=== PATIENT | male | born 1955 | race Hispanic/Latino ===

== ENCOUNTER → 2019-09-07 | Outpatient (CLI) | payer OTHER | END | disposition home or self-care (01) | LOC: EDUNIT# 09-06 15:30 → RAH 11:39 | PROVIDERS: ATTEND Internal Medicine Cardiovascular Disease | DX: Z13.6 Encounter for screening for cardiovascular disorders (principal) | CPT/HCPCS: 75571 ==

== ENCOUNTER → 2020-02-23 | Outpatient (CLI) | payer BC | END | disposition home or self-care (01) | LOC: RAH 08:36 | PROVIDERS: ATTEND Internal Medicine Cardiovascular Disease | DX: I70.201 Unspecified atherosclerosis of native arteries of extremities, right leg (principal); E11.621 Type 2 diabetes mellitus with foot ulcer | CPT/HCPCS: 93925 ==

== ENCOUNTER 2020-03-21 06:47 | Day surgery (SDC) | payer BC ==
[2020-03-19 13:51] LABS: BASOPHILS % (AUTO) 0.5 % (0.0-5.0); HEMATOCRIT 43.7 % (42-54); LYMPHOCYTES % (AUTO) 18.3 % (21.0-51.0); MEAN CORPUSCULAR HEMOGLOBIN 30.7 pg (27.0-33.0); MEAN CORPUSCULAR HGB CONC 33.2 g/dL (32.0-36.0); MEAN CORPUSCULAR VOLUME 92.6 fL (79-99); MONOCYTES % (AUTO) 8.1 % (3.0-13.0); NEUTROPHILS % (AUTO) 70.7 % (40.0-77.0); PLATELET COUNT (AUTO) 179 K/uL (130-400); RED BLOOD CELL COUNT(AUTO) 4.72 MIL/uL (4.50-6.20); RED CELL DISTRIBUTION WIDTH 12.6 % (11.0-15.5); WHITE BLOOD COUNT (AUTO) 8.1 K/uL (4.8-10.8)
[2020-03-19 14:00] LABS: CREATININE 1.1 mg/dL (0.5-1.5); POTASSIUM 4.4 mmol/L (3.5-5.1)
[2020-03-19 14:01] LABS: APPEARANCE,URINE Clear (CLEAR); BILIRUBIN,URINE Negative (NEGATIVE); COLOR,URINE Yellow (YELLOW); GLUCOSE, URINE (UA) >=1000 mg/dL (NEGATIVE); KETONES,URINE Trace mg/dL (NEGATIVE); LEUKOCYTE ESTERASE ,URINE Negative (NEGATIVE); NITRATE,URINE Negative (NEGATIVE); OCCULT BLOOD,URINE Negative (NEGATIVE); PROTEIN,URINE POS 1+ mg/dL (NEGATIVE); UROBILINOGEN,URINE 0.2 mg/dL (0.2-1.0)
[2020-03-19 14:04] LABS: INR 0.97 (0.85-1.15); PROTHROMBIN TIME 10.4 SEC (9.6-11.6)
[2020-03-19 14:05] LABS: PARTIAL THROMBOPLASTIN TIME 24.6 SEC (26.3-35.5)
[2020-03-19 15:00] LABS: BACTERIA,URINE Rare /HPF (None Seen); RBC,URINE 0-1 /HPF (0-1); SQUAMOUS EPITHELIAL CELL,UR Rare /HPF (0-2); WBC,URINE 0-1 /HPF (0-1)
[2020-03-20 09:06] VITALS: BP 154/89
[2020-03-21] VITALS (10 sets, daily range): BP systolic 134–157; BP diastolic 82–90
[~2020-03-21] VITALS: Ht 167.6 cm; Wt 74.7 kg
[~2020-03-21 06:47] MED LIST: 0.9% NACL 500ML IV.SOLN 500 ML IV SCH; ACET1TAB25 PO; CLOP75TA32 PO; LOSA25TA41 PO; METF-446 PO
[2020-03-21] MEDS ORDERED: FENTANYL CITRATE PF 50 MCG/1 ML 2ML VIAL ONE ×2 (07:43→11:15)
[2020-03-21] MEDS ORDERED: LIDOCAINE HCL 400MG/20ML VIAL ONE (07:43)
[2020-03-21] MEDS ORDERED: NITROGLYCERIN 2 MG VIAL IV ONE (07:43)
[2020-03-21] MEDS ORDERED: IODIXANOL 320 MG/ML 100 ML VIAL ONE ×2 (07:43→07:59)
[2020-03-21] MEDS ORDERED: NICARDIPINE 25MG INJ IV ONE (07:43)
[2020-03-21] MEDS ORDERED: MIDAZOLAM HCL 1 MG/ML 2ML VIAL ONE ×2 (07:43→10:03)
[2020-03-21] MEDS ORDERED: HEPARIN 10,000 UNIT/10ML (1,000 UNIT/ML) VIAL ONE (07:44)
[2020-03-21] MEDS ORDERED: EPTIFIBATIDE 2 MG/ML 10 ML VIAL IVP ONE (08:04)
[2020-03-21] MEDS ORDERED: IBUP-14 PO (08:23)
[2020-03-21] MEDS ORDERED: ATOR40TA69 PO (08:23)
[2020-03-21] MEDS ORDERED: LEVO500T90 PO (08:23)
[2020-03-21] MEDS ORDERED: MUPI15CR12 TP (08:23)
[2020-03-21] MEDS ORDERED: ASPIRIN 325MG EC TAB PO ONE (08:52)
[2020-03-21] MEDS ORDERED: CLOPIDOGREL 300MG TAB ONE (08:52)
[2020-03-21] MEDS ORDERED: HEPARIN 1,000 UNIT VIAL ONE ×2 (10:09→10:58)
[2020-03-21] MEDS ORDERED: 0.9%NACL 1000ML 1,000 ML IV SCH (12:00)
== END 2020-03-21 15:30 | disposition home or self-care (01) ==
LOC: DAH 06:47
PROVIDERS: ATTEND Internal Medicine Cardiovascular Disease
DX: I70.202 Unspecified atherosclerosis of native arteries of extremities, left leg (principal); E11.51 Type 2 diabetes mellitus with diabetic peripheral angiopathy without gangrene; E78.5 Hyperlipidemia, unspecified; Z79.01 Long term (current) use of anticoagulants; E86.0 Dehydration; Z79.899 Other long term (current) drug therapy
CPT/HCPCS: 36415 ×2; 71045; 75716; 80048; 81001; 82948 ×2; 85025; 85347; 85610; 85730; 93005; 96360; 96361; A4215; A4216; A4221; A4222; A4223 ×3; A4606; A4663; C1724 ×3; C1725 ×4; C1727; C1760; C1769 ×6; C1893; C1894 ×2; C9774 ×2; J1327; J1644 ×4; J2250 ×2; J3010 ×2; J3490 ×3; J7040; Q9967 ×2; 37229; 99156; 99157